=== PATIENT | female | born 1980 | race Caucasian/White ===

== ENCOUNTER 2017-02-12 14:59 | Emergency (ER) | payer OTHER ==
[~2017-02-12] VITALS: Ht 152.4 cm; Wt 67.3 kg
[2017-02-12 15:08] VITALS: BP 140/93; PULSE 98; RESP 16; O2SAT 98
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
--- NOTE | 2017-02-12 17:36 | DRSVH ---
PROCEDURE: X-RAY LEFT ELBOW COMPLETE, MINIMUM THREE VIEWS ([id number]) INDICATIONS: elbow pain and swelling TECHNIQUE: 3 views of the elbow were acquired. COMPARISON: None. FINDINGS: Bones: No fractures or dislocations. There are some mild hypertrophic changes. Joint spaces are well -maintained. Soft tissues: Probable elbow joint effusion. In the lateral view there are faint calcifications could be within the elbow joint as intra-articular bodies but no effusion is appreciated IMPRESSION: Probable joint effusion with intra-articular bodies. No acute bony abnormality. Dictated by: Saeid Lovelace M.D. on 02/12/2017 at 17:33 Approved by: Saeid Lovelace M.D. on 02/12/2017 at 17:35
== END 2017-02-12 18:49 | disposition home or self-care (01) ==
LOC: SED 14:59
DX: M25.422 Effusion, left elbow (principal); X50.1XXA Overexertion from prolonged static or awkward postures, initial encounter; Y92.000 Kitchen of unspecified non-institutional (private) residence as the place of occurrence of the external cause; Y93.E5 Activity, floor mopping and cleaning; Y99.0 Civilian activity done for income or pay; I48.91 Unspecified atrial fibrillation; Z98.890 Other specified postprocedural states; Z88.1 Allergy status to other antibiotic agents; Z91.041 Radiographic dye allergy status; Z88.5 Allergy status to narcotic agent

== ENCOUNTER 2017-05-04 21:51 | Emergency (ER) | payer OTHER ==
[~2017-05-04] VITALS: Ht 152.4 cm; Wt 69.5 kg
[2017-05-04 22:01] VITALS: BP 176/101; PULSE 84; RESP 18; O2SAT 99
[2017-05-04 23:01] LABS: BASOPHILS % (AUTO) 0.3 % (0-3); MONOCYTES % (AUTO) 7.2 % (4-12); Mean Corpuscular Hemoglobin 30.8 pg (27.0-35.0); Mean Corpuscular Volume 92.2 fL (81-100); NEUTROPHILS % (AUTO) 57.5 % (40-74); Platelet Count 306 bil/L (150-400)
--- NOTE | 2017-05-04 23:15 | ED.REPORT ---
HPI-Abd Pain F Under 40 Date of Service May 04, 2017 ED Provider: Boris Felix MD The patient is a 36 year old female with a history of paroxysmal atrial fibrillation s/p multiple abdominal surgeries who presents to the ED accompanied by her daughter with LLQ abdominal pain onset suddenly at 1900 this evening. The pain is intermittently dull and sharp, with radiation to her left leg. The patient also reports nausea. She denies fever, vomiting, hematochezia, constipation, diarrhea, vaginal bleeding, vaginal discharge, dysuria, hematuria , or other symptoms. The patient's symptoms are exacerbated by laying flat. She has never had similar symptoms in the past. Nursing Notes Stated Complaint: PELVIC PAIN Chief Complaint: Female Abdominal Pain Nursing Notes Reviewed: Yes Allergies: Coded Allergies: Macrolide Antibiotics (Verified Allergy, Severe, 05/04/17) iodine (Verified Allergy, Severe, TOPICAL ONLY, 05/04/17) morphine (Verified Allergy, Severe, 05/04/17) codeine (Verified Adverse Reaction, Mild, N/V, 05/04/17) General Time Seen by MD: 23:10 Chief Complaint Abdominal pain Hx Obtained From: Patient Arrived By: Walk-in Sudden in Onset?: Yes Onset Occurred: 1 - 4 hours ago Symptom Duration: Intermittent Location: : LLQ Quality: Dull, Painful, Sharp Severity: Current: Moderate Severity: Maximum: Moderate Status: Negative - ED urine HCG Exacerbated by: Supine Context Related History: Reports: Abdominal surgery, Bariatric surgery Recent Healthcare: No recent doctor visit Similar Sx Previous: No Past Medical History Past Medical History Notes: PCP: Dr. Treviño Past Medical History History of paroxysmal atrial fibrillation requiring cardioversion (not on any chronic medications) Reports: Atrial fibrillation Past Surgical History Wrist surgery 2x Tummy tuck Sphincter surgery Reports: (x3), Cholecystectomy, Hysterectomy Family History Father: [place] in his last 20s Smoking History Never Smoker Social History Alcohol Use: Denies alcohol use Drug Use: Denies drug use Other Social History: Good social support, Lives with children, Local resident Ambulatory Status Independent Review of Systems Constitutional: Denies: Fever Respiratory: Denies: Non-productive cough, Shortness of breath GI: Reports: Abdominal pain (LLQ), Nausea, Denies: Constipation, Diarrhea, Hematochezia, Vomiting Female: Denies: Dysuria, Hematuria, Vaginal bleeding - abnl, Vaginal discharge Musculoskeletal: Reports: Extremity pain (Left leg) Complete sys rev & neg: except as marked. Physical Exam Physical Exam Notes: Initial Vital Signs Vital Signs (First) Date Time Temp Pulse Resp B/P Pulse Ox O2 Delivery O2 Flow Rate FiO2 05/04/17 22:01 36.6 84 18 176/101 99 Room Air Initial VS: Reviewed, Vital signs abnormal Head / Eyes: Atraumatic, Normocephalic ENT: Conjunctiva normal, No scleral icterus Neck: Supple, Full range of motion Skin: Warm, Dry, No cyanosis Neurologic: Alert, Oriented, Nonfocal Psychiatric: Mood/affect normal, Behavior normal, Normal thought content General/Constitutional: Awake, Alert Distress / Hydration: Positive: Distress mild Respiratory / Chest: Breath sounds NL, Breath sounds = bilat, No respiratory distress Cardiovascular: Heart rate NL, Regular rhythm, Heart sounds NL Abdomen: Soft, No guarding, BS normoactive Tenderness/Guarding/Rebound: Positive: Tender LLQ... No rigidity Interpretation & Diagnostics URINE : Negative URINE DIPSTICK: Bedside Urine Specific [place] * 1.015 Bedside Urine pH * 5 Bedside Urine Leukocyte Esterase * Negative Bedside Urine Nitrite * Negative Bedside Urine Protein * Negative Bedside Urine Glucose * Normal Bedside Urine Ketones * Negative Bedside Urine Urobilinogen * Normal Bedside Urine Bilirubin * Negative Bedside Urine Occult Blood * Negative Urine to Lab * Yes Lab Results Interpretation Result Diagram: 05/04/17224405/04/172244 Test 05/04/17 22:45 05/05/17 01:09 White Blood Count 10.9th/mm3 (3.8-10.1) Red Blood Count 4.48mil/mm3 (3.90-5.20) Hemoglobin 13.8g/dL (12.0-15.6) Hematocrit 41.3% (35.0-46.0) Mean Corpuscular Volume 92.2fL (81-100) Mean Corpuscular Hemoglobin 30.8pg (27.0-35.0) Mean Corpuscular Hemoglobin Concent 33.4% (32.0-37.0) Red Cell Distribution Width 12.3% (12.3-15.4) Platelet Count 306bil/L (150-400) Neutrophils (%) (Auto) 57.5% (40-74) Lymphocytes (%) (Auto) 32.7% (14-46) Monocytes (%) (Auto) 7.2% (4-12) Eosinophils (%) (Auto) 2.0% (0-5) Basophils (%) (Auto) 0.3% (0-3) Sodium Level 139mEq/L (134-144) Potassium Level 3.4mEq/L (3.5-5.2) Chloride Level 101mEq/L (97-108) Carbon Dioxide Level 24mmol/L (18-29) Blood Urea Nitrogen 10mg/dL (6-20) Creatinine 0.79mg/dL (0.57-1.00) Estimat Glomerular Filtration Rate 117mL/min (>59) Glucose Level 91mg/dL (60-99) Calcium Level 9.2mg/dL (8.5-10.1) Magnesium Level 1.8mg/dL (1.6-2.6) Total Bilirubin 0.4mg/dL (0.0-1.2) Aspartate Amino Transf (AST/SGOT) 17U/L (0-50) Alanine Aminotransferase (ALT/SGPT) 18U/L (0-32) Alkaline Phosphatase 43U/L (25-150) Total Protein 7.5g/dL (6.4-8.4) Albumin 4.6g/dL (3.4-5.0) Lipase 30U/L (13-60) Hold Dunn Top Tube Received (Received) Hold Urine Received (Received) Lab Results Interpretation: Mild elevation of white blood count. Urinalysis negative. ECG Interpretation ECG Interpretation: Sinus rhythm rate 65 Nonspecific intraventricular conduction delay Time: 22:08 Interpreted by: ED physician CT Abd / Pelvis Interpretation CONCLUSION: Normal caliber appendix. No free air, bowel obstruction, or gross intestinal inflammation. Report transmitted to ED by radiologist Josiah Conn M.D. at 05/05/2017 - 1:53:39 AM PDT Study type: Abdominal CT IV contrast Interpretation / Wet Read by: Interpret - Radiologist Re-Eval/Medical Decision Med Decision/Clinical Course 36-year-old female with left lower quadrant abdominal pain. Laboratory and CT scan imaging revealed no serious or surgical problems. She is being discharged home in an improved condition to follow-up with her primary doctor. Source of Hx: Old records Re-Evaluation/Progress : Time of Eval: 02:05 Patient Status: Condition improved Re-Evaluation/Progress Note: Discussed with patient CT and lab results, diagnosis, and plan for discharge. Follow-up and return to the ER instructions given. Patient agrees with plan for care and all questions were addressed. Counseled Regarding: Diagnosis, Lab results, Need for follow-up, When/why to return to ED Discharge & Departure Primary Impression: Abdominal pain Abdominal location: left lower quadrant Qualified Code: R10.32 - Left lower quadrant pain Disposition: Home Discharge Condition All VS Reviewed: Yes Condition: Improved Patient Instructions: Acute Abdominal Pain (ED) Additional Instructions: Thank you for entrusting us with your care. Your lab work and CT scan today were reassuring for any serious illness. Specifically, there is no evidence of diverticulitis, bowel obstruction, or other serious or surgical problems. Call your primary care provider for a follow-up appointment if your symptoms do not resolve in 2-3 days. Return to the ER with any new or worsening symptoms. Referrals: Nahid Treviño MD (PCP) Reji Attestation Portions of this note were transcribed by Jocelyne Lieberman. I, Dr. Felix, personally performed the history, physical exam, and medical decision-making; I reviewed and confirmed the accuracy of the information in the transcribed note. Signed by: Reji Medina, 05/05/2017, 03:10 copies to: Nahid Treviño MD, Howard L MD May 04, 2017 23:15 JOCELYNE LIEBERMAN May 04, 2017 23:43
[2017-05-04 23:21] LABS: Magnesium 1.8 mg/dL (1.6-2.6)
[2017-05-04] MEDS ORDERED: Ondansetron 8 mg ODT Tablet PO ONE (23:30)
[2017-05-05 02:37] VITALS: BP 152/84; PULSE 80; RESP 18; O2SAT 99
--- NOTE | 2017-05-05 08:23 | DRSVH ---
PROCEDURE: CT ABDOMEN AND PELVIS WITH CONTRAST ([id number]) INDICATIONS: LLQ abd pain TECHNIQUE: After the administration of intravenous contrast, 5 mm thick sections acquired from the diaphragm to the symphysis. 5 mm coronal and sagittal reformats were acquired. For radiation dose reduction, the following was used: automated exposure control, adjustment of mA and/or kV according to patient siz e. COMPARISON: None. FINDINGS: Image quality: Excellent. ABDOMEN: Lung bases: Lung bases are clear. Heart size is normal. Solid organs: Liver and spleen are normal in size and enhancement. Diffuse fatty infiltration of the liver. Gallbladder is surgically absent. Biliary system is non dilated. Pancreas enhances normally . No adrenal nodules. Kidneys demonstrate normal size and enhancement, without hydronephrosis. Peritoneum and bowel: Bowel loops demonstrate normal wall thickness and caliber. No free fluid or a ir. Nodes and vessels: No retroperitoneal or mesenteric adenopathy by size criteria. Aorta and inferior vena cava are normal in size. Miscellaneous: No ventral hernias. PELVIS: Genitourinary: Bladder wall thickness is normal. Uterus is surgically absent. Miscellaneous: No inguinal hernias or adenopathy. Bones: No suspicious bony lesions. No vertebral body compression fractures. Lower lumbar spine dege nerative disc changes. IMPRESSION: 1. No acute disease process. 2. Hepatic steatosis. 3. The appendix is normal. 4. No free fluid or air. Dictated by: Ayse Aleman MD, PhD on 05/05/2017 at 8:19 Approved by: Ayse Aleman MD, PhD on 05/05/2017 at 8:22
== END 2017-05-05 02:39 | disposition home or self-care (01) ==
LOC: SED 21:51
DX: R10.32 Left lower quadrant pain (principal); R11.0 Nausea; I48.91 Unspecified atrial fibrillation; Z98.890 Other specified postprocedural states; Z88.1 Allergy status to other antibiotic agents; Z88.5 Allergy status to narcotic agent
CPT/HCPCS: 36415; 74177; 80053; 81025; 83690; 83735; 85025; 93005; 99284; Q9967

== ENCOUNTER → 2017-08-12 | Day surgery (SDC) | payer OTHER ==
[~2017-08-12] VITALS: Ht 152.4 cm; Wt 66.0 kg
[2017-08-12] VITALS (11 sets, daily range): BP systolic 109–128; BP diastolic 75–94; PULSE 60–91; RESP 14–22; O2SAT 98–100
[~2017-08-12] MED LIST: Atropine 0.4 mg/mL Inj IVPUSH PRN; CeFAZolin 2 Gm/50 mL D5W Duplex Bag IV ONE; CeFAZolin Inj 2 GM in IV Premix 1 EACH IV ONE; Clindamycin 600 mg/50 mL D5W Premix IV ONE; Dexamethasone 4 mg/mL Inj ONE; EPHEDrine Sulfate 50 mg/mL Inj IVPUSH PRN; HYDR-4003 PO; HYDROcodone-APAP 5-325 mg Tablet PO PRN; HYDROmorphone 1 mg/mL Inj IVPUSH PRN; Labetalol 5 mg/mL 20 mL Inj IV PRN; Lactated Ringer's 1,000 ML IV ONE; Lactated Ringer's 1,000 ML IV SCH; Lactated Ringer's 500 ML IV PRN; METH750T3 PO; MetoCLOpramide 5 mg/mL 2 mL Inj IVPUSH PRN; NITR0.4T38 SL; Ondansetron 2 mg/mL 2 mL Inj IVPUSH PRN; Ondansetron 2 mg/mL 2 mL Inj ONE; Phenylephrine 10,000 mCg/mL Inj IVPUSH PRN; Propofol 10,000 mCg/mL 20 mL Inj ONE; Ropivacaine-PF 0.5% 30 mL Inj INFILTRATE ONE; fentaNYL-PF 50 mCg/mL 2 mL Inj ONE
--- NOTE | 2017-08-12 13:57 | PCM.ORTHOP ---
Orthopedic Operative Report Date of Service: Aug 12, 2017 Pre Operative Diagnosis Left knee loose body, chondromalacia Post Operative Diagnosis Same left knee loose body, chondromalacia, degenerative posterior horn medial meniscus tear Procedure Left knee arthroscopy, loose body removal, partial medial meniscectomy partial synovectomy, chondroplasty Surgeon Surgeon: Lee Caicedo MD Assistants: Manjula Martell DO Indication for Procedure left knee loose body Findings Loose body approximately 1 cm in diameter Details of Procedure INDICATIONS: Sue Enriquez is a 37-year-old female who has had a history of left knee pain. The patient has failed conservative management. X- rays show the tibiofemoral joints to be preserved with minimal DJD. MRI was obtained which reveals large loose body and medial femoral condyle chondromalacia. The patient has had persistent symptoms and is now brought to the operating room for arthroscopy. The risks, benefits, and alternatives of surgery were discussed with the patient. The risks included but were not limited to infection, bleeding, damage to vessels and nerves, loss of motion, continued pain, re-tear of the meniscus, deep venous thrombosis, and complications due to anesthesia including nerve injury, myocardial infarction, stroke, , etc. The patient stated understanding of the nature of the surgical procedure and gave written and verbal consent to proceed. PROCEDURE: The patient was brought to the operating room and placed supine on the operating room table. After the administration of general anesthesia the patient was placed in the supine position. Examination of the knee revealed no evident instability with a trace effusion. All prominences were padded with appropriately and neurovascular structures protected. The left knee was confirmed to be the appropriate site following surgical time out. The left lower extremity was examined under anesthesia. Range of motion was 0-135 degrees. There was no varus or valgus or anterior or posterior instability. The left lower extremity was then prepped and draped in the usual fashion. Sterile prep and drape was then undertaken of the knee. The knee joint was injected with 20 ccs of 1% Lidocaine, along with 3 ccs of 1 % lidocaine in the medial and lateral portal sites respectively. A standard anterolateral parapatellar stab wound was created. The knee joint was entered with a blunt- tipped obturator, followed by the 30-degree video arthroscope. An anteromedial portal was established under arthroscopic control. A routine arthroscopic survey was performed. The patellofemoral joint showed grade 2/3 chondromalacia which was debrided down to stable tissue with a shaver. The medial joint space was then entered. The articular surfaces showed grade 3/ 4 chondromalacia. A degenerative posterior horn medial meniscal tear was noted with a small flap. The shaver and the cutting instruments were inserted, and a debridement of the meniscus back to healthy tissue was then undertaken. The ACL and PCL were noted to be intact. The lateral joint space was then entered. The articular surfaces were intact with grade 1 chondromalacia. There was no tear to the lateral meniscus. A combination of the shaver and cutting instruments were then inserted and a debridement of this tissue down to stable tissue was undertaken. Moderate synovitis was noted anteriorly in the medial and lateral compartment and debrided with a shaver. 2 loose bodies were removed one approximately 12 mm x 10 mm another 4 mm x 3 mm. They were not fixed to any structures however presided adjacent anterior cruciate ligament. The knee was irrigated with an additional 2 liters of lactated Ringer's solution. Excess fluid was drained. The portals were closed with 3-0 nylon as well as xeroform. The knee was injected with 20 mL of 0.5% ropivacaine. A dry sterile dressing was applied, followed by an BONNIE hose, soft roll, and SHAHRZAD bandage. The patient was awakened in the operating room and transported to the recovery room in satisfactory condition. The patient appeared to tolerate the procedure well. At the completion of surgery the patient had soft compartments , palpable pulses, and brisk capillary refill. There were no complications noted. Please keep dressing clean dry and intact. Do not remove dressing until follow- up in clinic. If the dressing become soaked, you may remove the outer gauze and placed Band-Aids on the wounds. You may weight-bear as tolerated and maintain motion of your knee by bending it daily. You will follow up in clinic in 10-14 days for suture removal, and placement of new Steri-Strips. You will follow-up with me in clinic, and we will start physical therapy if needed. You will follow-up with me at 6 weeks postop and 12 weeks postop and will be released after that if improved. Please keep the affected extremity elevated when possible. Please take aspirin as prescribed.You may use ice and/ or heat as needed for comfort. (preferably ice during the first 48-72 hours) Please feel free to call with any further questions, comments, and/or concerns. Grafts, Implants: Implants-See Implant Record Complications There were no periprocedural complications identified. Condition Stable Anesthetic Administered: GA Output, Estimated Blood Loss: 5 Blood Admin during surgery: No Surgical Cast or Splint: Other Surgical Specimen Removed: No Specimen sent to Pathology: No copies to: Lee Caicedo MD, Christopher L MD Aug 12, 2017 13:57
--- NOTE | 2017-08-12 14:31 | PCM.HPANE ---
Patient Data Surgeon Admitting Provider: Attending Provider:Lee Caicedo MD Primary Care Physician:Nahid Treviño MD Other Provider:[facility] [facility] Reason for Visit Left Knee Loose Body And Meniscal Tear Ht/WT & BMI Height (Feet): 5 Height (Inches): 0 Weight (Kilograms): 65.77 Body Mass Index 28.00 Allergies Coded Allergies: Macrolide Antibiotics (Verified Allergy, Severe, stops breathing, 08/11/17) iodine (Verified Allergy, Severe, TOPICAL ONLY, 05/04/17) morphine (Verified Allergy, Severe, pt cannot recall reaction, 08/11/17) vancomycin (Verified Allergy, Severe, RESPIRATORY DISTRESS, 08/12/17) Penicillins (Verified Allergy, Intermediate, GI UPSET, 08/12/17) codeine (Verified Adverse Reaction, Mild, N/V, 05/04/17) Allergies PCN allergy as well Past Anesthesia History Anesthesia History: Denies:: Abnormal Airway, Anesthesia Reactions, Difficult Intubation, Fam Anesthesia Reaction Diabetes History Hx Diabetes?: No MRSA MRSA: No Medications Hypertension Medication: No Home Meds Incl Beta Jamshid: No Reported Medications Nitroglycerin SL 0.4 Mg Tab.subl0.4 Mg SL PRN For Chest Pain 08/11/17 Methocarbamol 750 Mg [id number] Mg PO QID PRN For Spasm Ref 0 08/11/17 Hydrocodone-Acetaminophen 5-325 mg 1 Each Tablet1 Tablet PO Q8H PRN For Pain Ref 0 08/11/17 History History of ENT Problems?: Yes HEENT History: Positive for:: Hearing Problem (post ruptured ear drum) Denies:: Abnormal Airway Cataracts Difficult Intubation Dysphagia Glaucoma Sinus Problem TMJ Denture Type: None Teeth Condition: Missing Teeth Hx of Heart Problems?: Yes Cardiovascular History: Positive for:: Atrial Fibrillation (PAF when overstressed, 3 times in last year) Irregular Heartbeat (PAF) Denies:: AICD Congestive Heart Failure Heart Murmur Hypertension (only when stressed ) Pacemaker Peripheral Vascular Rheumatic Fever Valvular Heart Disease (stress test 2014) Other Cardiac History: states has taken nitro twice in last two years. Had cardioversion scheduled at one point- but had converted to NSR before it occurred Hx of Respiratory Problem?: Yes Respiratory History: Positive for:: Pneumonia (hx of Nov-January "lung infection ") Denies:: Asthma (smoke sensitive- post infection) COPD Dyspnea Emphysema Oxygen Administration Tuberculosis Use of C-PAP Machine ("shallow breather" post anes) Use of Inhalers / NEBS Hx Neurologic Problems?: No Neurological History: Denies:: CVA Headaches Multiple Sclerosis Parkinson's Disease Seizures Hx of GI Problems?: Yes Hx of Problems?: No Genitourinary History: Denies:: Kidney Stones Urinary Tract Infection Female Hx: Denies:: Currently (hysterectomy) Problems with Breasts? Skin History: Denies:: History Skin Disorders? Pressure Ulcers Hx Musculoskeletal Problems?: Yes Musculoskeletal History: Positive for:: Musculoskeletal Trauma (left knee current admission problem) Osteoarthritis Denies:: Back Injury Fibromyalgia Joint Replacement Myasthenia Gravis Systemic Lupus Hx of Psycho/Social Problems?: Yes Psycho Social History: Positive for:: Anxiety Hx Depression (situational due to recent family trauma) Hx Surgeries?: Yes (C sections, hyst, ramona, ) Hx Any Other Health Problems?: Yes Other History: Denies:: Cancer Thyroid Disease History Blood Transfusions: Positive for:: Accept Blood Products? Denies:: Blood Transfusions Hx Diabetes: No Hx Alcohol Use: NoHx Substance Use: Yes (marijuana rarely (inhales)) Smoking Status: Never Smoker Have You Smoked inLast 12 mo: Yes (once a week to month) Stop/Bang P-Blood Pressure: treated: No B- Body Mass Index > 35 kg/m2: No A- Age over 50: No N- Neck Large Circumference: No G- Gender Male: No Risk Assessment Category Category 1A: Patient has history of documented sleep apnea, and HAS NOT received any narcotic, sedative or anesthesia administration during this stay. Category 1B: Patient has history of documented sleep apnea, and HAS received any narcotic , sedative or anesthesia administration during this stay Category 2: Patient has SUSPECTED Obstructive Sleep Apnea, and HAS received any narcotic , sedative or anesthesia administration during this stay. Category 3: Patient has SUSPECTED Obstructive Sleep Apnea and HAS NOT received narcotic, sedative or anesthesia administration during this stay. Category 4: Outpatient in Procedural Areas with known sleep apnea or who screen positive for High Risk via the STOP/BANG questionnaire. Exam Exam General Appearance: Alert, Oriented X3 HEENT/AIRWAY: MP 2, Neck Movement (FROM) Lungs: Clear to Auscultation, Clear to Percussion Heart: Exam Unremarkable, Regular Rate/Rhythm Meds/Labs/Diagnostics Admission Meds Current Medications Lactated Ringer's (Lr) 1,000 ml @ 80 mls/hr [id number] ONCE IV Last administered on 08/12/17t 13:40; Start 08/12/17 at 06:00; Stop 08/12/17 at 18:29 Plan Impression Patient chart reviewed, patient interviewed and anesthestic plan with risks, benefits, and alternatives discussed, and informed consent obtained. ASA Physical Status: ASA2 Mod Systemic Disease Anesthetic Plan: GA Bene/Risks/Altern/Consents: Yes HP Complete Prior to Induction: Yes Saeid uBck MD Aug 12, 2017 13:59
[2017-08-12] MEDS: fentaNYL-PF 50 mCg/mL 2 mL Inj IVPUSH PRN ×4 (15:17→15:45)
== END | disposition home or self-care (01) ==
LOC: SAS 13:28
PROVIDERS: ATTEND Orthopaedic Surgery
DX: M23.42 Loose body in knee, left knee (principal); M23.222 Derangement of posterior horn of medial meniscus due to old tear or injury, left knee; M22.42 Chondromalacia patellae, left knee; M65.862 Other synovitis and tenosynovitis, left lower leg; I48.91 Unspecified atrial fibrillation; M19.90 Unspecified osteoarthritis, unspecified site; F41.9 Anxiety disorder, unspecified; F32.9 Major depressive disorder, single episode, unspecified; F12.10 Cannabis abuse, uncomplicated; Z79.899 Other long term (current) drug therapy